=== PATIENT | female | born 1965 | race Hispanic/Latino ===

== ENCOUNTER 2017-12-13 09:21 | Day surgery (SDC) | payer OTHER ==
[2017-12-13 09:52] VITALS: BP 135/78; PULSE 75; RESP 20; TEMP 97.3; O2SAT 95
--- NOTE | 2017-12-13 10:56 | CP.SDSHP ---
Same Day Surgery H & P - History Proposed Procedure: US guided FNA of thyroid nodule Pre-Op Diagnosis: Thyroid nodules - Allergies Allergies: Allergies No Known Allergies Allergy (Unverified 07/15/16 18:00) - Physical Exam Vital Signs: Vital Signs 12/13/17 09:22 Temperature 97.3 F L Pulse Rate 75 Respiratory 20 Rate Blood Pressure 135/78 O2 Sat by Pulse 95 Oximetry - Impression Impression: Limited US performed today showed a heterogenous thyroid and multiple subcentimeter nodules. There are no nodules that meet criteria for US guided FNA. Recommend repeat US in 6-12 months. Pt. Evaluated Today:Candidate for Anesthesia & Procedure: No Short Stay Discharge - Short Stay Discharge Admitting Diagnosis/Reason for Visit: THYROID BX Disposition: HOME/ ROUTINE
--- NOTE | 2017-12-14 13:30 | US ---
PROCEDURE: Date of Procedure: 12/13/2017 PROCEDURE: 1. Ultrasound of thyroid gland HISTORY: Left thyroid nodules TECHNIQUE: Following informed consent and procedure time-out, a limited ultrasound patient's thyroid gland was performed for purposes of biopsy. The left thyroid gland is heterogeneous. Multiple sub centimeter nodules are present. There are no nodules that meet criteria for ultrasound-guided FNA. No biopsy was performed. IMPRESSION: Heterogeneous thyroid with multiple sub centimeter nodules. Recommend sonographic follow-up in 6-12 months.
== END 2017-12-13 11:03 | disposition home or self-care (01) ==
LOC: C.SPRAD 09:21
PROVIDERS: ATTEND Radiology Vascular & Interventional Radiology
DX: E04.2 Nontoxic multinodular goiter (principal)
CPT/HCPCS: 10022; 76536